=== PATIENT | male | born 1955 | race Caucasian/White ===

== ENCOUNTER 2018-04-01 11:19 | Emergency (ER) | payer MEDICAID, OTHER ==
[~2018-04-01] VITALS: Ht 177.8 cm; Wt 59.0 kg
[2018-04-01 11:23] VITALS: BP 161/97
[2018-04-01] MEDS ORDERED: penicillin V potassium 500mg tablet PO ONE (11:55)
[2018-04-01] MEDS ORDERED: HYDROcodone/acetaminophen 10/325mg tab PO ONE (11:55)
[2018-04-01] MEDS ORDERED: HYDR-565 PO (11:58)
[2018-04-01] MEDS ORDERED: PENI500T2 PO (11:58)
== END 2018-04-01 12:16 | disposition home or self-care (01) ==
LOC: ER 11:21
DX: K02.9 Dental caries, unspecified (principal)
CPT/HCPCS: 99283

== ENCOUNTER 2018-12-07 17:05 | Emergency (ER) | payer MEDICAID, OTHER ==
[~2018-12-07] VITALS: Ht 177.8 cm; Wt 75.0 kg
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
--- NOTE | 2018-12-07 19:36 | NUR ---
DARRIAN CALLED BACK CASE # [id number]
[2018-12-07] MEDS ORDERED: AMOX-580 PO (21:02)
[2018-12-07 21:20] VITALS: BP 136/88
== END 2018-12-07 21:24 | disposition home or self-care (01) ==
LOC: ER 17:06
DX: S02.40EA Zygomatic fracture, right side, initial encounter for closed fracture (principal); F17.210 Nicotine dependence, cigarettes, uncomplicated; Z79.899 Other long term (current) drug therapy; Y04.0XXA Assault by unarmed brawl or fight, initial encounter; Y93.89 Activity, other specified; Y92.89 Other specified places as the place of occurrence of the external cause; Y99.8 Other external cause status
CPT/HCPCS: 70450; 70486; 99284

== ENCOUNTER 2018-12-11 07:46 | Emergency (ER) | payer MEDICAID ==
[~2018-12-11] VITALS: Ht 177.8 cm; Wt 75.0 kg
[~2018-12-11 07:46] MED LIST: AMOX-580 PO
[2018-12-11] MEDS ORDERED: normal saline 1000ML IV soln IVB ONE (08:05)
[2018-12-11 09:02] LABS: BASOPHILS % (AUTO) 0.9 % (0-1); EOSINOPHILS # (AUTO) 0.2 X10'3 (0-0.9); EOSINOPHILS % (AUTO) 3.7 % (0-6); HEMATOCRIT 40.3 % (42.0-52.0); HEMOGLOBIN 13.9 g/dl (14.0-17.9); LYMPHOCYTES % (AUTO) 23.5 % (21-51); MEAN CORPUSCULAR HEMOGLOBIN 33.6 PG (27.0-31.0); MEAN CORPUSCULAR HGB CONC 34.4 g/dL (33.0-36.5); MEAN CORPUSCULAR VOLUME 97.6 FL (78-98); MEAN PLATELET VOLUME 7.8 FL (7.4-10.4); MONOCYTES # (AUTO) 0.6 X10'3 (0-0.9); MONOCYTES % (AUTO) 12.7 % (2-12); NEUTROPHILS # (AUTO) 2.6 X10'3 (1.8-7.7); NEUTROPHILS % (AUTO) 59.2 % (42-75); PLATELET COUNT 160 X10'3 (140-440); RED BLOOD COUNT 4.13 X10'6 (4.70-6.10); RED CELL DISTRIBUTION WIDTH 13.8 % (11.5-14.5); WHITE BLOOD COUNT 4.3 X10'3 (4.5-11.0)
[2018-12-11 09:12] LABS: ALANINE AMINOTRANSFERASE 43 U/L (12-78); ALBUMIN 3.3 G/DL (3.4-5.0); ALBUMIN/GLOBULIN RATIO 1.2 (1.1-1.5); ALKALINE PHOSPHATASE 91 IU/L (46-116); ANION GAP 6 (8-16); ASPARTATE AMINO TRANSFERASE 29 U/L (10-37); BILIRUBIN,TOTAL 0.6 MG/DL (0.1-1.0); BLOOD UREA NITROGEN 17 MG/DL (7-18); BUN/CREATININE RATIO 23.9 (5.4-32.0); CHLORIDE 106 MMOL/L (99-107); CREATININE 0.71 MG/DL (0.60-1.10); GLUCOSE 86 MG/DL (70-104); POTASSIUM 3.9 MMOL/L (3.5-5.1); SODIUM 140 MMOL/L (135-145); TOTAL PROTEIN 6.1 G/DL (6.4-8.2); eGFR > 90 ML/MIN
[2018-12-11 09:22] LABS: MAGNESIUM 1.2 MG/DL (1.5-2.4)
[2018-12-11 10:32] VITALS: BP 138/85
== END 2018-12-11 10:41 | disposition home or self-care (01) ==
LOC: ER 07:47
DX: F07.81 Postconcussional syndrome (principal); R42 Dizziness and giddiness; Z59.0 Homelessness
CPT/HCPCS: 36415; 70450; 71045; 80053; 83735; 83880; 84439; 84443; 84484; 85025; 93005; 96360; 99284; J7030

== ENCOUNTER 2019-07-15 11:55 | Emergency (ER) | payer MEDICAID, OTHER ==
[2019-07-15 11:58] VITALS: BP 121/82
[2019-07-15] MEDS ORDERED: PERM60CR19 TP (12:19)
== END 2019-07-15 12:29 | disposition home or self-care (01) ==
LOC: ER 11:55
DX: B86 Scabies (principal); Z59.0 Homelessness; Z79.899 Other long term (current) drug therapy
CPT/HCPCS: 99283

== ENCOUNTER 2025-04-25 20:07 | Emergency (ER) | payer OTHER, MEDICAID ==
[~2025-04-25] VITALS: Ht 180.3 cm; Wt 72.7 kg
[2025-04-25 20:19] VITALS: BP 190/91; PULSE 112; TEMP 99.7; O2SAT 98
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
--- NOTE | 2025-04-25 21:39 | RADIOLOGY REPORT ---
CLINICAL INDICATION: HAND PAIN LEFT TECHNIQUE: 3 radiographic views of the left hand were obtained. 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 Otherwise, no evidence for acute traumatic fractures or dislocations. Moderate degenerative changes of the 1st carpometacarpal joint. Vascular calcification is noted. Moderate soft tissue edema over the dorsum of the hand.
[2025-04-25] MEDS: ibuprofen tablet 400 MG TABLET PO ONE (21:41)
[2025-04-25] MEDS: sulfamethoxazole/trimethoprim DS (800/160mg) tablet PO ONE (21:41)
[2025-04-25] MEDS: ondansetron 4mg rapidly disintigrating tab PO ONE (21:42)
[2025-04-25] MEDS: bacitracin 15gm ointment TP ONE (21:42)
[2025-04-25 21:43] VITALS: RESP 18
[2025-04-25] MEDS ORDERED: SULF1TAB49 PO (21:54)
== END 2025-04-25 22:18 | disposition home or self-care (01) ==
LOC: ER 20:07
DX: L03.114 Cellulitis of left upper limb (principal)
CPT/HCPCS: 73130; 99283